=== PATIENT | female | born 1990 | race Caucasian/White ===

== ENCOUNTER 2025-01-23 10:55 | Outpatient (CLI) | payer OTHER, SELFPAY ==
[2025-01-23 11:10] LABS: Abs Immature Grans 0.02 10^3/uL (0.0-0.06); HCT 42.2 % (36.0-46.0); HGB 14.6 g/dL (11.2-15.7); Immature Grans % 0.3 %; MCH 31.1 pg (27.0-33.0); MCHC 34.6 % (32.0-36.0); MCV 90 fL (80-95); MPV 9.6 fL (8.0-11.0); Platelet Count 270 10^3/uL (130-400); RBC 4.69 10^6/uL (3.93-5.22); RDW 12.0 % (11.7-14.6); RDW-SD 39.3 fL; WBC 7.07 10^3/uL (4.4-10.8)
== END 2025-01-23 10:56 | disposition home or self-care (01) ==
LOC: LBO 10:55
PROVIDERS: Visit Provider Obstetrics & Gynecology
DX: Z01.818 Encounter for other preprocedural examination (principal)
CPT/HCPCS: 36415; 86850; 86900; 86901; 85025

== ENCOUNTER 2025-01-24 10:52 | Day surgery (SDC) | payer OTHER, SELFPAY ==
[2025-01-24] VITALS (13 sets, daily range): BP systolic 99–137; BP diastolic 60–78; PULSE 72–90; RESP 12–23; TEMP 36.2–36.7; O2SAT 93–100; BMI 33.0
--- NOTE | 2025-01-24 11:07 | ANES.PREOP_ITS ---
General Info Date of Service Date Performed: 01/24/25 Height: 5 ft 2 in Weight: 82.696 kg Body Mass Index (BMI): 33.3 Surgical Procedure: Operation Date: 01/24/25 12:10 Proposed Procedure Side Surgeon p Operative Laparoscopy Removal of Intra-Abdominal IUD, Possible Placement of Mirena Micki Alfaro DO Meds Allergies and Home Medications Allergies Allergy/AdvReac Type Severity Reaction Status Date / Time cefdinir AdvReac Intermediate itching Verified 01/23/25 11:23 Home Medication ?Medication ?Instructions ?Recorded levonorgestrel 14 mcg/24 hr (up to 1 device intrauteri ne ONCE 01/23/25 3 yrs) 13.5 mg intrauterine device (Darya) nitrofurantoin 100 mg PO DAILY 01/23/25 monohydrate/macrocrystals 100 mg capsule (Macrobid) Current Visit Medications: Current Medications Generic Name Dose Route Start Last Admin Trade Name Freq PRN Reason Stop Dose Admin Enoxaparin Sodium 40 mg 01/24/25 06:00 Enoxaparin 40 Mg/0.4 Ml Syr SC 01/24/25 23:59 PREOP BATSHEVA Ringer's Solution 1,000 mls @ 125 mls/hr 01/24/25 06:00 IV 01/24/25 23:59 INFUSION BATSHEVA Cefazolin Sodium/Dextrose 2 gm in 50 mls @ 100 mls/hr 01/24/25 06:00 Ancef Duplex IVPB 01/24/25 23:59 PREOP BATSHEVA IV Miscellaneous Supplies 1 each 01/24/25 06:00 Iv Access IV 01/24/25 23:59 DIRECTED BATSHEVA Sodium Chloride 0 ml 01/24/25 06:00 Normal Saline Flush 10 Ml Syr IV 01/24/25 23:59 PRN PRN Sodium Chloride 0 ml 01/24/25 06:00 Normal Saline 10 Ml Vial IJ 01/24/25 23:59 DIRECTED PRN Sterile Water 0 ml 01/24/25 06:00 Water,Injection,Sterile 10 Ml Vial IJ 01/24/25 23:59 DIRECTED PRN PFSH Active Problems Active Problems: Problem Status Onset Code Complication of intrauterine device (IUD) Acute T83.9XXA Migraine Chronic G43.909 Asthma Chronic J45.909 Factor V Leiden Acute D68.51 Medical History Medical History History of pre-eclampsia High blood pressure affecting in third trimester, antepartum Tobacco Passive smoking exposure: No Alcohol Alcohol Intake: current Alcohol intake frequency: a few times a week Substance Use Substance use type: does not use Prental History History 2 Para 2 Hx # Term Pregnancies 1 Multiple births Hx # Pregnancies 1 Ectopic pregnancies AB induced Hx Number of Living Children 2 AB spontaneous Past Pregnancies Del. Date GA/Weeks # Preg Succ Route Wgt Sex Labor Lgth Anesth esia Location Prov Complic 10/06/22 36 Yes vaginal 2182.913 g Female 4 hours [facility] 09/28/24 37 Yes vaginal 3175.147 g Male 7 hours [facility] Delivery Date: 10/06/22 Last Updated by: HERBERT Rooney Delivery Date: 09/28/24 Last Updated by: HERBERT Rooney Vital Signs and Lab Results Lab Results Blood Type / Crossmatch: Antibody Screen NEGATIVE 01/23/25 Complete Blood Count: WBC, (4.4-10.8) 7.07 10^3/uL 01/23/25, 10:55 RBC, (3.93-5.22) 4.69 10^6/uL 01/23/25, 10:55 Hgb, (11.2-15.7) 14.6 g/dL 01/23/25, 10:55 Hct, (36.0-46.0) 42.2 % 01/23/25, 10:55 Plt Count, (130-400) 270 10^3/uL 01/23/25, 10:55 Anesthesia Assessment and Plan Anesthesia History Personal History: No History of Anesthesia Complications Family History: No Family History of Anesthesia Complications Implantable Cardiac Device Does patient have a Pacemaker or an ICD?: No
[2025-01-24] MEDS: Lactated Ringers 1,000 ML 125 ML IV (13:49)
[2025-01-24] MEDS: Enoxaparin 40 MG/0.4 ML SYR SC (14:00)
--- NOTE | 2025-01-24 14:00 | W.ANESPRE ---
General Info Date of Service Date Performed: 01/24/25 Height: 5 ft 2 in Weight: 82.1 kg Body Mass Index (BMI): 33.0 Surgical Procedure: Operation Date: 01/24/25 12:10 Proposed Procedure Side Surgeon p Operative Laparoscopy Removal of Intra-Abdominal IUD, Possible Placement of Mirena Micki Alfaro DO Actual Procedure Side Surgeon p Operative Laparoscopic Removal of Intra-Abdominal IUD Not Applicable Micki Alfaro DO Pre-Op Diagnosis Post-Op Diagnosis Complication of intrauterine device (IUD) Complication of intrauterine device (IUD) Meds Allergies and Home Medications Allergies Allergy/AdvReac Type Severity Reaction Status Date / Time cefdinir AdvReac Intermediate itching Verified 01/24/25 11:23 Home Medication ?Medication ?Instructions ?Recorded levonorgestrel 14 mcg/24 hr (up to 1 device intrauterine ONCE 01/23/25 3 yrs) 13.5 mg intrauterine device (Darya) nitrofurantoin 100 mg PO DAILY 01/23/25 monohydrate/macrocrystals 100 mg capsule (Macrobid) Current Visit Medications: Current Medications Generic Name Dose Route Start Last Admin Trade Name Freq PRN Reason Stop Dose Admin Enoxaparin Sodium 40 mg 01/24/25 06:00 Enoxaparin 40 Mg/0.4 Ml Syr SC 01/24/25 23:59 PREOP BATSHEVA Ringer's Solution 1,000 mls @ 125 mls/hr 01/24/25 06:00 01/24/25 13:49 IV 01/24/25 23:59 125 mls/hr INFUSION BATSHEVA Administration Cefazolin Sodium/Dextrose 2 gm in 50 mls @ 100 mls/hr 01/24/25 06:00 Ancef Duplex IVPB 01/24/25 23:59 PREOP BATSHEVA IV Miscellaneous Supplies 1 each 01/24/25 06:00 Iv Access IV 01/24/25 23:59 DIRECTED BATSHEVA Sodium Chloride 0 ml 01/24/25 06:00 Normal Saline Flush 10 Ml Syr IV 01/24/25 23:59 PRN PRN Sodium Chloride 0 ml 01/24/25 06:00 Normal Saline 10 Ml Vial IJ 01/24/25 23:59 DIRECTED PRN Sterile Water 0 ml 01/24/25 06:00 Water,Injection,Sterile 10 Ml Vial IJ 01/24/25 23:59 DIRECTED PRN PFSH Active Problems Active Problems: Problem Status Onset Code Complication of intrauterine device (IUD) Acute T83.9XXA Migraine Chronic G43.909 Asthma Chronic J45.909 Factor V Leiden Acute D68.51 Medical History Medical History History of pre-eclampsia High blood pressure affecting in third trimester, antepartum Tobacco Smoking/Tobacco Use Status: Never Passive smoking exposure: No Alcohol Alcohol Intake: current Alcohol intake frequency: a few times a week Alcohol type: wine Substance Use Substance use: Never Substance use type: does not use Prental History History 2 Para 2 Hx # Term Pregnancies 1 Multiple births Hx # Pregnancies 1 Ectopic pregnancies AB induced Hx Number of Living Children 2 AB spontaneous Past Pregnancies Del. Date GA/Weeks # Preg Succ Route Wgt Sex Labor Lgth Anesthesia Location [facility] 10/06/22 36 Yes vaginal 2182.913 g Female 4 hours [facility] 09/28/24 37 Yes vaginal 3175.147 g Male 7 hours [facility] Delivery Date: 10/06/22 Last Updated by: HERBERT Rooney Delivery Date: 09/28/24 Last Updated by: Raven Hernandez RN Will Vital Signs and Lab Results Vital Signs Most Recent Vital Signs in EMR: Most Recent Vital Signs Temp Pulse Resp BP Pulse Ox 36.7 C 84 16 137/78 100 01/24/25 11:16 01/24/25 11:16 01/24/25 11:16 01/24/25 11:16 01/24/25 11:16 Point of Care Results Point of Care Results: POC- Test(urine) Negative 01/24/25 11:24 Lab Results Blood Type / Crossmatch: Antibody Screen NEGATIVE 01/23/25 Complete Blood Count: WBC, (4.4-10.8) 7.07 10^3/uL 01/23/25, 10:55 RBC, (3.93-5.22) 4.69 10^6/uL 01/23/25, 10:55 Hgb, (11.2-15.7) 14.6 g/dL 01/23/25, 10:55 Hct, (36.0-46.0) 42.2 % 01/23/25, 10:55 Plt Count, (130-400) 270 10^3/uL 01/23/25, 10:55 Anesthesia Assessment and Plan Anesthesia History Personal History: No History of Anesthesia Complications Family History: No Family History of Anesthesia Complications Exercise Tolerance Exercise Tolerance: Metabolic Equivalents>4 Pertinent Negatives Pertinent Negatives: No Symptoms of GERD Cardiac & Pulmonary Exam Cardiac Exam: Normal S1/S2 Heart Sounds Pulmonary Exam: Clear Bilateral Breath Sounds Implantable Cardiac Device Does patient have a Pacemaker or an ICD?: No Airway Exam Known Difficult Airway: No Mallampati Class: 2 Mouth Opening: Normal (> 3cm) Thyromental Distance: Greater than 3 cm Neck Range of Motion: Full ROM Neck Circumference: Normal Teeth Condition: Normal Dentition ASA Classification ASA Score: ASA 2 Emergency Case?: No NPO Status NPO Status: NPO Clears >2 hours, Solids >8 hours Status Status: Negative HCG Anesthesia Plan Resuscitation Status: Full Code Anesthesia Technique: General Anesthesia Airway Planned: Endotracheal Tube Monitors Used: Standard Monitors and SedLine Preoperative Comments:: Received Lovenox pre-op for factor 5 leiden deficiency.
[2025-01-24] MEDS: ceFAZolin 2 GM/50 ML BAG IVPB (14:15)
[2025-01-24] MEDS: Bupivacaine 0.5% Pres-Free 30 ML VIAL (14:32)
--- NOTE | 2025-01-24 14:53 | W.PM.OP ---
Operative Note Operative Note PRE-OP DIAGNOSIS: Migrated IUD POST-OP DIAGNOSIS: same Posterior uterine perforation PROCEDURE: Operative laparoscopy, removal of intra-abdominal intrauterine device SURGEON: Micki Alfaro HONING MACHINE SET UP OPERATOR: Nigel Stovall ANESTHESIA TYPE: Local By Surgeon and General LMA/ETT Refer to Anesthesia Record ESTIMATED BLOOD LOSS: 5 PATHOLOGY: none sent COMPLICATIONS: None Patient was transported to: PACU Patient's condition: stable Indications: Migrated IUD, intra-abdominal. Findings: Normal-appearing tubes, ovaries. Uterus is soft. Uterine perforation with Hulka device at the time of INSERTION. Removed with appropriate perforation site hemostatic. Free floating intrauterine device in the left lower quadrant, removed Procedure Description: After full informed consent is obtained, patient is in Suite with IV running. She is placed in dorsal supine position and anesthesia administered via general endotracheal intubation. She was then prepped and draped in usual sterile fashion and a timeout was held. Examiner anesthesia revealed a uterus that was midline and mobile. Second vaginal vault and a Hulka uterine manipulator was placed. At the time of insertion. There was a uterine perforation, and there was no significant bleeding at that time. Attention was then turned to the abdomen where a small amount of half percent Marcaine was infiltrated into the umbilical area. A 10 mm incision was made and the intra-abdominal wall was elevated. A Veress needle was inserted directly into the abdomen and pneumoperitoneum created with CO2 gas to a maximum pressure of 15 mmHg. At this point, with creation of the pneumoperitoneum, a 10 mm trocar placed under direct visualization. The entirety of the abdomen was inspected. Ovaries appeared normal bilaterally. Tubes are normal bilaterally. As of note, as suspected, there was a perforation in the posterior aspect of the uterus. The Hulka was then removed and the puncture site was noted to be completely hemostatic. A second port was placed in the left lower quadrant after infiltration of half percent Marcaine. A grasper was placed through the 5 mm port to retrieve the 2012) intrauterine device from the left lower quadrant. This was removed from the abdomen. Again, the abdomen and pelvis were inspected and noted to be completely free of status post reoperative evidence of trauma. The pneumoperitoneum released and no bleeding was apparent. 5 mm sleeve was then removed from the abdomen under direct visualization. The remainder of the pneumoperitoneum released and the fascial incision as to 10 mm umbilical site was closed using 3-0 Monocryl suture. At this point skin edges were reapproximated with 4-0 undyed Monocryl and Steri-Strips and sterile dressings were placed. Patient returned to the dorsal supine position and woke anesthesia without difficulty. She was taken the postanesthesia care unit in stable condition. EBL: 5 mL Findings: Normal-appearing tubes, ovaries, and uterus with inadvertent perforation of the uterus with a Hulka manipulator. Hemostatic. Removal free-floating IUD without difficulty Patholog: none Complications: none noted Date of Procedure: 01/24/25
--- NOTE | 2025-01-24 15:32 | W.ANESPOSTOP ---
Postoperative Evaluation Date, Time and Location Date Performed: 01/24/25 Time Performed: 15:32 Patient Location: Day Surgery Unit Vital Signs Most Recent Imported Vital Signs: Most Recent Vital Signs Temp Pulse Resp BP Pulse Ox 36.5 C 74 17 117/76 94 01/24/25 15:20 01/24/25 15:21 01/24/25 15:21 01/24/25 15:20 01/24/25 15:21 Pain Score Most Recent Pain Score: Most Recent Pain Score Pain Level 2 01/24/25 15:30 Assessment Mental Status: Awake (Alert & Oriented to Patient Baseline) Airway and Respiratory Function: Patent airway with normal (patient baseline) respiratory exam Cardiovascular Function: Hemodynamically Stable Hydration Status: Adequately Hydrated Nausea & Vomiting: No Nausea or Vomiting Pain: Pain is tolerable per patient Peripheral Nerve Block: Patient did not receive a nerve block
== END 2025-01-24 16:37 | disposition home or self-care (01) ==
PROVIDERS: Visit Provider Obstetrics & Gynecology
PROC: (CPT 49320; principal; 2025-01-24 12:00)
DX: T83.32XA Displacement of intrauterine contraceptive device, initial encounter (principal); D68.51 Activated protein C resistance
CPT/HCPCS: 49402; 81025; J1650; J0131; J0665; J0690; J1100; J1885; J2003; J2250; J2405; J2704; J3010; J3475